=== PATIENT | female | born 1995 | race African-American/Black ===

== ENCOUNTER 2016-10-17 15:16 | Emergency (ER) | payer OTHER ==
[~2016-10-17] VITALS: Ht 157.5 cm; Wt 65.9 kg
[2016-10-17 18:26] LABS: APPEARANCE,URINE CLOUDY (CLEAR); GLUCOSE, URINE (UA) NEGATIVE (NEGATIVE); KETONES,URINE NEGATIVE (NEGATIVE); OCCULT BLOOD,URINE SMALL (NEGATIVE); PROTEIN,URINE NEGATIVE (NEGATIVE)
[2016-10-17 18:30] VITALS: BP 123/80
[2016-10-17 18:34] LABS: ADD UA MICROSCOPIC YES; LEUKOCYTE ESTERASE ,URINE TRACE (NEGATIVE)
[2016-10-17 18:35] LABS: SQUAMOUS EPITHELIAL CELL,UR Moderate /LPF (None Seen)
== END 2016-10-17 18:59 | disposition home or self-care (01) ==
LOC: EMS 15:18
DX: O23.41 Unspecified infection of urinary tract in pregnancy, first trimester (principal); R10.9 Unspecified abdominal pain; Z3A.11 11 weeks gestation of pregnancy
CPT/HCPCS: 76801; 76817; 99285

== ENCOUNTER 2019-03-28 10:45 | Emergency (ER) | payer OTHER ==
[~2019-03-28] VITALS: Ht 157.5 cm; Wt 70.5 kg
[2019-03-28 11:08] VITALS: BP 115/73
[2019-03-28] MEDS ORDERED: MEDR150V IM (11:12)
== END 2019-03-28 13:10 | disposition left against medical advice (07) ==
LOC: EMS 10:48
DX: O26.891 Other specified pregnancy related conditions, first trimester (principal); N93.9 Abnormal uterine and vaginal bleeding, unspecified; Z53.21 Procedure and treatment not carried out due to patient leaving prior to being seen by health care provider